=== PATIENT | male | born 1990 | race Caucasian/White ===

== ENCOUNTER → 2018-06-10 | Outpatient (CLI) | payer BC ==
--- NOTE | 2018-06-11 09:14 | MM ---
Reason for exam: clinical finding. Baseline mammogram. History: Family history of breast cancer in sister at age 32. Indicated problem(s): lump or thickening in the left breast. Physical Findings: Nurse Summary: 1cm nodule in the left breast at 12 o'clock and 2 o'clock (nurse mj). MG 3D Diag Mammo W/Cad SANDRA Bilateral CC and MLO view(s) were taken. There are scattered fibroglandular densities. Biopsy of a clinically palpable suspicious lesion should not be deterred based on negative mammogram of sonogram. Gynecomastia. These results were verbally communicated with the patient and result sheet given to the patient on 06/10/18. ASSESSMENT: Benign, BI-RAD 2 RECOMMENDATION: Surgical consultation of the left breast. Left ultrasound today for palpable per Dr. Benson. Called Dr. Perez with mammographic findings. Patient states that Dr. Malissa Sanabria's office to call him to schedule appointment after they get report. PRELIMINARY REPORT CALLED AND FAXED TO DR. SANABRIA ON 06/11/18.
--- NOTE | 2018-06-11 09:15 | USB ---
Reason for exam: clinical finding. History: Family history of breast cancer in sister at age 32. US Breast Limited LT Left limited breast ultrasound including focal area of concern, retroareolar and axilla demonstrates no cystic or solid lesion seen. These results were verbally communicated with the patient and result sheet given to the patient on 06/10/18. ASSESSMENT: Probably benign, BI-RAD 3 RECOMMENDATION: Surgical consultation of the left breast. Manage patient on a clinical basis. Called Dr. Perez with mammographic findings. Patient states that Dr. Malissa Sanabria's office to call him to schedule appointment after they get report. PRELIMINARY REPORT CALLED AND FAXED TO DR. SANABRIA ON 06/11/18.
== END | disposition home or self-care (01) ==
LOC: RADMAMWWP 14:57
PROVIDERS: ATTEND Family Medicine
DX: N63.20 Unspecified lump in the left breast, unspecified quadrant (principal)
CPT/HCPCS: 77062; 77066